=== PATIENT | male | born 1985 | race African-American/Black ===

== ENCOUNTER 2018-05-19 23:51 | Emergency (ER) | payer OTHER ==
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
[2018-05-20 01:43] VITALS: BP 100/69; PULSE 84; RESP 16; TEMP 98.6
[2018-05-20 02:16] VITALS: O2SAT 100
--- NOTE | 2018-05-20 08:19 | RAD ---
Date of service: 05/20/2018 PROCEDURE: Radiographs of the right elbow. HISTORY: elbow injury, pain COMPARISON: No prior. FINDINGS: BONES: Normal. No fracture. JOINTS: Normal. No osteoarthritis. SOFT TISSUES: Normal. JOINT EFFUSION: None. OTHER FINDINGS: None. IMPRESSION: Unremarkable radiographs of the right elbow.
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
== END 2018-05-20 01:45 | disposition home or self-care (01) ==
LOC: C.ER 23:51
DX: S20.211A Contusion of right front wall of thorax, initial encounter (principal); S40.021A Contusion of right upper arm, initial encounter; Y04.0XXA Assault by unarmed brawl or fight, initial encounter